=== PATIENT | male | born 1935 | race Caucasian/White ===

== ENCOUNTER → 2016-05-13 | Outpatient (CLI) | payer MEDICARE | LOC: SOLHH 15:00 | PROVIDERS: ATTEND Family Medicine | DX: N39.0 Urinary tract infection, site not specified (principal); R31.9 Hematuria, unspecified ==

== ENCOUNTER 2016-05-15 15:55 | Inpatient (IN) | payer OTHER ==
[2016-05-15 16:01] VITALS: BP 154/75; TEMP 98.2; O2SAT 91
[2016-05-15] MEDS ORDERED: SODIUM CHLORIDE 0.9% (FLUSH) 10 ML SYG IV PRN (16:05)
[2016-05-15] MEDS ORDERED: DEXAMETHASONE INJ 4 MG/ML VIAL IV ONE (16:08)
[2016-05-15] MEDS ORDERED: IV SET AND CAP CHANGE INJ INJ SCH (16:30)
[2016-05-15] MEDS ORDERED: ATROPINE 1% SL PRN (19:32)
[2016-05-15] MEDS ORDERED: SODIUM CHLORIDE 0.9% 100ML 100 ML IVPB ONE (20:56)
[2016-05-15] MEDS ORDERED: levETIRAcetam SUSPENSION 100 MG/ML BTTL PO SCH (21:00)
[2016-05-15] MEDS ORDERED: levETIRAcetam INJ 100 MG/ML VIAL IVPB ONE (21:01)
--- NOTE | 2016-05-15 21:05 | HP ---
SUPERVISING PHYSICIAN: Jasvir Kinsey M.D. CHIEF COMPLAINT: Hospice admission secondary to complications from malignant glioblastoma. HISTORY OF PRESENT ILLNESS: Mr. Ferreira is a 80 year-old male patient of Dr. Marcus. Mr. Ferreira has a history of recent diagnosis of a grade IV glioblastoma multiforme that was first diagnosed when he started having stroke-like symptoms in July of 2015. Initially he presented to [facility] complaining of left sided weakness and possible stroke. After imaging was completed, they found a tumor that was noted to be grade IV glioblastoma after craniotomy and pathology reports were completed. After surgery, he did well and returned home. He was encouraged by his oncologist to start radiation and chemotherapy, however the patient opted to forego any advanced treatment for quality of life reasons. He was doing well until this past Monday when he started having a significant decline in his health. He became much more unresponsive. He has had a previous seizure in the past which he is currently on Keppra. His ultimate wishes were that he not at home and he has been on hospice care since his diagnosis in July under the care of [facility] in [place], [place]. Today, I was called by Dr. Marcus that the patient had made a significant decline and his prognosis was grim. Given that he had a wish to not pass away at home, his family requested that he be admitted to the hospital to inpatient hospice care for care and comfort measures only. The patient was admitted to hospice inpatient under the care of [facility]. PAST MEDICAL HISTORY: 1. Grade IV glioblastoma diagnosed in July 2015. 2. Coronary artery disease. 3. Hyperlipidemia. 4. Hypertension. 5. First degree AV block. 6. Colon polyps. 7. Diverticulosis. 8. Benign prostatic hypertrophy. 9. 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 PAST SURGICAL HISTORY: 1. Craniotomy for grade IV glioblastoma on 08/12/15 performed at [facility]. 2. Coronary artery bypass graft times 5 in 1983. 3. Hernia repair left inguinal and right inguinal in 2010. 4. Multiple excisions of skin cancers in 2013. 5. Cat scratch fever with lymph gland resection in 4. 6. Multiple colonoscopies. 7. Cardiac catheterization in 04/2009. HOME MEDICATIONS: Please refer to the electronic medical records for an updated list of home medications. ALLERGIES: AMLODIPINE, ERYTHROMYCIN AND SULFA DRUGS. FAMILY HISTORY: The patient's father at age 72 from prostate cancer as well as he had emphysema, arthritis and cerebrovascular accidents. Mother at age 78 due to colon cancer. SOCIAL HISTORY: The patient is retired. 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 The patient has recently moved from [place] to retire in [place]. He is and has 3 children. He has never smoked and he does drink alcohol on a regular basis but averages about 1 beer a day. REVIEW OF SYSTEMS: Unobtainable due to the patient's obtunded state. PHYSICAL EXAMINATION: VITAL SIGNS: Temperature 98.2, pulse 88, blood pressure 154/75, respirations 22 , satting 91% on room air. Admission weight is 76.83 kg. GENERAL: The patient appears to be comfortable in no distress. He is quite obtunded. Will only open his eyes to loud verbal stimulus. HEENT: Tympanic membranes are clear bilaterally. Oropharynx is pink. Mucosal membranes are dry. CHEST: Lungs are diminished towards the bases. No rhonchi, wheezing or rales are noted. CARDIOVASCULAR: Heart is regular rate and rhythm without appreciable murmurs, gallops, or rubs. ABDOMEN: Obese but soft, non-tender. Positive bowel sounds. EXTREMITIES: No clubbing, cyanosis or edema. NEUROLOGIC: The patient is obtunded. Will only open eyes to loud verbal stimulus but will not follow any commands. Family notes that the patient has complete hemiparesis of the left side secondary to recent events related to the malignant glioblastoma and craniotomy. LABORATORY AND RADIOLOGY: There are none obtained as he is a hospice patient for care and comfort measures only. ASSESSMENT: 1. Hospice admission for care and comfort measures only secondary to end stage disease process related to malignant glioblastoma. 2. Past medical history of recent diagnosis of a grade IV glioblastoma in 2015 presented as stroke-like symptoms. 3. History of extensive coronary artery disease. 4. Hypertension. 5. Diverticulosis. 6. Benign prostatic hypertrophy. PLAN: The patient will be placed in inpatient hospice care under the care of [facility] for care and comfort measures only. Orders were provided by Dr. Mracus and hospice care nurse. Will continue to monitor the patient as needed with the family for care and comfort. The patient's prognosis is grim with imminent with the patient being quite obtunded and having significant decline. Family is quite pleasant and is very appreciative of the hospice care and hospital care for inpatient hospice, and have been instructed to notify the nurses of any needs or any changes concerning for the patient's care and comfort. Until discharge, will continue to monitor the patient as needed and assist with ongoing care. Ultimately when the patient expires, he is to be released to the [facility] as family has instructed. He is a DNR with care and comfort measures only. 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 No other medications other than Ativan and morphine will be administered. #[id number] [facility]
[2016-05-15] MEDS: SODIUM CHLORIDE 0.9% (FLUSH) 10 ML SYG IV SCH (21:11)
[2016-05-15] MEDS: levETIRAcetam INJ 500 MG in SODIUM CHLORIDE 0.9% 100ML 100 ML IVPB SCH (21:11)
[2016-05-16] MEDS ORDERED: SODIUM CHLORIDE 0.9% 10 ML VIAL ONE ×2 (01:39→09:25)
[2016-05-16] MEDS: MORPHINE SULFATE INJ 10 MG/ML VIAL IV PRN ×3 (01:45→17:35)
[2016-05-16] MEDS ORDERED: SODIUM CHLORIDE 0.9% 100ML 100 ML IVPB ONE (09:08)
[2016-05-16] MEDS ORDERED: levETIRAcetam INJ 100 MG/ML VIAL IVPB ONE (09:08)
[2016-05-16] MEDS ORDERED: MORPHINE SULFATE INJ 10 MG/ML VIAL ONE (09:24)
[2016-05-16] MEDS: SODIUM CHLORIDE 0.9% (FLUSH) 10 ML SYG IV SCH (09:33)
[2016-05-16] MEDS: levETIRAcetam INJ 500 MG in SODIUM CHLORIDE 0.9% 100ML 100 ML IVPB SCH (09:41)
[2016-05-16] MEDS ORDERED: SODIUM CHLORIDE 0.9% 10 ML VIAL IV PRN (09:42)
[2016-05-16] MEDS ORDERED: SODIUM CHL 0.9% 50ML MIN-BAG+ 50 ML IVPB ONE (11:19)
[2016-05-16] MEDS ORDERED: cefTRIAXone SODIUM 1 GM VIAL ONE (11:20)
[2016-05-16] MEDS ORDERED: cefTRIAXone SODIUM 1 GM in SODIUM CHL 0.9% 50ML MIN-BAG+ 50 ML IVPB SCH (11:30)
[2016-05-16] MEDS ORDERED: ACETAMINOPHEN SUPPOSITORY 650 MG PR PRN (17:47)
[2016-05-16] MEDS ORDERED: MORPHINE SULFATE INJ 10 MG/ML VIAL IV PRN (17:50)
[2016-05-16] MEDS ORDERED: ACETAMINOPHEN SUPPOSITORY 325 MG PR ONE (17:54)
[2016-05-16] MEDS ORDERED: ACETAMINOPHEN SUPPOSITORY 650 MG PR ONE ×2 (17:54→18:18)
--- NOTE | 2016-05-16 19:19 | DS ---
HISTORY OF PRESENT ILLNESS: This 80 year-old white male has had a significant history of health problems with a grade IV glioblastoma multiforme of the brain diagnosed in July of 2015. He was initially cared for by [facility] and include a biopsy and initial treatment options given. The patient chose not to start radiation and chemotherapy, and the patient was returned home and did subsequently quite well up until this past week when he started having a significant decline in his general health. He and his had moved from [place] and built a home, and were enjoying the home. He did not wish to get sick and especially did not want to in the home that his would continue to live in, so the patient's condition deteriorated to a certain level and hospice intervened to admit the patient to [facility] for care and comfort. Upon his arrival, he was unable to fully communicate. He was unable to eat or drink. He was placed in the hospital in a room that would be adequate to help manage a large family for visitation. His pastors were able to visit him on a regular basis. LABORATORY, MICROBIOLOGY AND RADIOLOGY: No studies performed. HOSPITAL COURSE: The patient's condition remained fairly stable until approximately 30 to 60 minutes before he when he was noted to have some significant agonal breathing. The family was present and were very helpful in comforting each other during this time. The patient's condition worsened until he stopped breathing and no cardiac function was noted, and he had loss of pupillary response to light and to stimuli. He was pronounced at 1830 on 05/16/16. PLAN: The patient has been cared for by Dr. Marcus in [facility]. The family has chosen [facility] and they will be notified for continued care. Discussed with hospice who are coming. #[id number] [facility]
== END 2016-05-16 20:30 | disposition expired | DRG 55 ==
LOC: MS 15:55
PROVIDERS: ADMIT Family Medicine; ATTEND Emergency Medicine
DX: C71.9 Malignant neoplasm of brain, unspecified (principal); R56.9 Unspecified convulsions; I25.10 Atherosclerotic heart disease of native coronary artery without angina pectoris; E78.5 Hyperlipidemia, unspecified; I10 Essential (primary) hypertension; N40.0 Benign prostatic hyperplasia without lower urinary tract symptoms; H40.9 Unspecified glaucoma; I44.0 Atrioventricular block, first degree; E66.9 Obesity, unspecified; Z51.5 Encounter for palliative care; Z95.1 Presence of aortocoronary bypass graft; Z88.8 Allergy status to other drugs, medicaments and biological substances; Z88.1 Allergy status to other antibiotic agents; Z88.2 Allergy status to sulfonamides